=== PATIENT | female | born 1990 | race Caucasian/White ===

== ENCOUNTER 2024-03-03 09:18 | Outpatient (OUT) | payer SELFPAY ==
[2024-03-03 10:36] LABS: Internal Control Within Normal Limits; SARS-CoV-2 Ag NEGATIVE (NEGATIVE)
== END 2024-03-03 09:19 | disposition home or self-care (01) ==
LOC: PST 09:20
PROVIDERS: Visit Provider Urology
DX: Z01.812 Encounter for preprocedural laboratory examination (principal); N20.1 Calculus of ureter; N13.39 Other hydronephrosis
CPT/HCPCS: 87811